=== PATIENT | male | born 1955 | race Caucasian/White ===

== ENCOUNTER 2016-07-22 08:03 | Emergency (ER) | payer SELFPAY ==
[~2016-07-22] VITALS: Ht 167.6 cm; Wt 79.8 kg
[2016-07-22 08:53] VITALS: BP 140/64
== END 2016-07-22 08:53 | disposition home or self-care (01) ==
LOC: ED 08:03
DX: J45.909 Unspecified asthma, uncomplicated (principal); M25.50 Pain in unspecified joint; R03.0 Elevated blood-pressure reading, without diagnosis of hypertension